=== PATIENT | male | born 1935 | race Caucasian/White ===

== ENCOUNTER 2022-02-23 09:03 | Emergency (ER) | payer OTHER, MEDICARE, BC ==
[2022-02-23] MEDS ORDERED: cefTRIAXone 1 GM in Sodium Chloride 0.9% 50 ML IV ONE (13:47)
[2022-02-23] MEDS ORDERED: Sodium Chloride 0.9% 250 ML IV SCH (14:00)
== END 2022-02-23 15:15 ==
LOC: JP.ED 09:03
DX: N13.2 Hydronephrosis with renal and ureteral calculous obstruction (principal); N39.0 Urinary tract infection, site not specified; E78.00 Pure hypercholesterolemia, unspecified; I10 Essential (primary) hypertension; E03.9 Hypothyroidism, unspecified; Z79.82 Long term (current) use of aspirin; Z79.899 Other long term (current) drug therapy; Z20.822 Contact with and (suspected) exposure to COVID-19
CPT/HCPCS: 36415; 74176; 80048; 81001; 85025; 87086; 87635; 96365; 99284; J0696; J7050; U0002